=== PATIENT | female | born 1960 | race Caucasian/White ===

== ENCOUNTER 2016-07-03 19:40 | Emergency (ER) | payer OTHER, BC ==
[~2016-07-03] VITALS: Ht 154.9 cm; Wt 70.5 kg
[2016-07-03 19:42] VITALS: BP 148/72; PULSE 111; RESP 16; TEMP 97.8; O2SAT 96
[2016-07-03] MEDS ORDERED: CYCL1TAB29 PO (20:53)
[2016-07-03] MEDS ORDERED: DICL50TA3 PO (20:53)
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
[2016-07-03] MEDS ORDERED: ACETAMINOPHEN/HYDROcodone 325 MG/5 MG TAB PO ONE (21:00)
== END 2016-07-03 21:07 | disposition home or self-care (01) ==
LOC: NEPB 19:40
DX: S16.1XXA Strain of muscle, fascia and tendon at neck level, initial encounter (principal); S20.219A Contusion of unspecified front wall of thorax, initial encounter; E78.00 Pure hypercholesterolemia, unspecified; Z86.69 Personal history of other diseases of the nervous system and sense organs; V59.88XA Occupant (driver) (passenger) of pick-up truck or van injured in other specified transport accidents, initial encounter; Y92.410 Unspecified street and highway as the place of occurrence of the external cause
CPT/HCPCS: 99283